=== PATIENT | female | born 1995 | race African-American/Black ===

== ENCOUNTER 2020-12-22 13:52 | Emergency (ER) | payer SELFPAY ==
[~2020-12-22] VITALS: Ht 170.2 cm; Wt 116.6 kg
== END 2020-12-22 16:23 | disposition home or self-care (01) ==
LOC: ED 13:52
DX: J42 Unspecified chronic bronchitis (principal); F17.200 Nicotine dependence, unspecified, uncomplicated; Z20.822 Contact with and (suspected) exposure to COVID-19
CPT/HCPCS: 81001; 84703; 99284; C9803; U0003

== ENCOUNTER 2021-04-10 16:49 | Emergency (ER) | payer OTHER ==
[~2021-04-10] VITALS: Ht 170.2 cm; Wt 116.6 kg
[2021-04-10] MEDS ORDERED: HYDROXYZINE HCL10 MG (17:09)
== END 2021-04-10 23:17 | disposition home or self-care (01) ==
LOC: ED 16:49
DX: S61.511A Laceration without foreign body of right wrist, initial encounter (principal); X78.9XXA Intentional self-harm by unspecified sharp object, initial encounter; Z20.822 Contact with and (suspected) exposure to COVID-19; F31.9 Bipolar disorder, unspecified; J45.909 Unspecified asthma, uncomplicated; F17.200 Nicotine dependence, unspecified, uncomplicated; Z79.899 Other long term (current) drug therapy
CPT/HCPCS: 80053; 80176; 81001; 84443; 84703; 85025; 99285; C9803; U0003

== ENCOUNTER 2022-03-27 05:40 | Day surgery (SDC) | payer OTHER ==
[~2022-03-27] VITALS: Ht 170.2 cm; Wt 113.6 kg
[~2022-03-27 05:40] MED LIST: HYDROXYZINE HCL10 MG; HYDROXYZINE HCL50 MG PO; LEXAPRO20 MG PO; METFORMIN HCL500 MG PO; MONO-LINYAH1 EACH PO; NORTRIPTYLINE H25 MG PO; TRAZODONE HCL150 MG PO
--- NOTE | 2022-03-27 08:28 | NUR ---
03/27/22 0828 Rowan Bradshaw 0819 PATIENT ARRIVES TO PACU UNRESPONSIVE TO PAIN. RESP EVEN AND UNLABORED, MASK AT 6 LITERS. 0825 PATIENT AWAKENS WITH PAINFUL STIMULI. RESP EVEN AND UNLABORED, MASK CONTINUES AT 6 LITERS, BACK TO SLEEP WHEN NOT STIMULATED.
--- NOTE | 2022-03-28 10:13 | OR ---
[facility] [address] [place], [place] [address] Signed DATE OF OPERATION: 03/27/2022 SURGEON: Madelin Rudolph DPM PREOPERATIVE DIAGNOSIS: Painful orthopedic hardware deep on the right first digit. PREOPERATIVE DIAGNOSIS: Painful orthopedic hardware deep on the right first digit. PROCEDURE: Removal of deep hardware right first digit proximal phalanx. WAISTLINE JOINER OVERLOCK: Feliz Mccallum DPM NURSE OPTIONS TRADER: Ivan Rider ANESTHESIA: Local with MAC. Local consisting of a 1:1 mix of 2% lidocaine plain and 0.5% ropivacaine. Total of 10 mL was utilized. HEMOSTASIS: With an ankle tourniquet. ESTIMATED BLOOD LOSS: Less than 5 mL or minimal. MATERIALS UTILIZED: 4-0 Vicryl, 5-0 nylon. PROCEDURE IN DETAIL: The patient was brought into the operating room and placed upon the operating table in the supine position. After IV sedation, the above local anesthesia was administered about the patient's right medial foot. The right foot was then scrubbed, draped, and prepped in the usual sterile technique. An Esmarch was utilized to exsanguinate the patient's right foot and then left wrapped around the ankle to act as tourniquet. Attention was then directed to the dorsal aspect of the first metatarsophalangeal joint where approximately a 3-4 cm linear incision was performed both medial and parallel to Electronically Signed By: MADELIN RUDOLPH DPM 03/28/22 1013 PATIENT NAME: JIMMY HAWLEY OPERATIVE REPORT DATE OF : [birth year] REPORT #: [id number] PHYSICIAN: MADELIN RUDOLPH DPM PCP: KHADAR PENALOZA DO REPORT IS CONFIDENTIAL AND NOT TO BE RELEASED WITHOUT AUTHORIZATION [facility] [address] [place], [place] [address] Signed the pin of the extensor hallucis longus, extending from the first metatarsal head onto the mid proximal phalanx location. The incision was then deepened through the subcutaneous tissue with care being taken to identify and retract vital neurovascular structures. Bleeders were cauterized and ligated as necessary. Dissection continued down to the deep fascia and periosteal layer. Here a surgical staple was identified. Utilizing the Humboldt elevator, the soft tissue around the surgical staple was freed. A wire straightener was then utilized to cut the surgical staple at its midpoint. A needle horta was then utilized to grab each individual leg of the surgical staple, and with slight twisting and distraction, the staple was removed. The area was flushed with copious amounts of sterile normal saline. The area inspected for remnant of metallic particles. The deep soft tissue and subcutaneous tissue were then closed reapproximated utilizing the 4-0 Vicryl and the skin was reapproximated and coapted utilizing 5-0 nylon. The surgical site was dressed with silver foam bordered gauze, followed by rolled gauze and Coban. The ankle tourniquet was removed and prompt hyperemic response was noted to all digits of the patient's right foot. The patient was then escorted to the recovery area by Anesthesia with vital signs stable and again cap refill time being grossly intact. Following a period of postoperative monitoring, the patient was discharged to home with both written and oral instructions. Madelin Rudolph DPM /QUANG /[id number] Copies: ~ Electronically Signed By: MADELIN RUDOLPH DPM 03/28/22 1013 PATIENT NAME: JIMMY HAWLEY OPERATIVE REPORT DATE OF : [birth year] REPORT #: [id number] PHYSICIAN: MADELIN RUDOLPH DPM PCP: KHADAR PENALOZA DO REPORT IS CONFIDENTIAL AND NOT TO BE RELEASED WITHOUT AUTHORIZATION
== END 2022-03-27 09:10 | disposition home or self-care (01) ==
LOC: DS 05:40 → OPS 05:40
PROVIDERS: ATTEND Podiatrist Foot & Ankle Surgery
PROC: 0SPM04Z Removal of Internal Fixation Device from Right Metatarsal-Phalangeal Joint, Open Approach (ICD-10-PCS; principal; 2022-03-27 07:00)
DX: T84.84XA Pain due to internal orthopedic prosthetic devices, implants and grafts, initial encounter (principal); G89.18 Other acute postprocedural pain; E66.9 Obesity, unspecified; J45.909 Unspecified asthma, uncomplicated; E11.9 Type 2 diabetes mellitus without complications; Y83.8 Other surgical procedures as the cause of abnormal reaction of the patient, or of later complication, without mention of misadventure at the time of the procedure
CPT/HCPCS: 73630; J0690; J1100; J2250; J2704; J2795; J7121

== ENCOUNTER 2022-10-31 09:12 | Emergency (ER) | payer OTHER ==
[~2022-10-31] VITALS: Ht 170.2 cm; Wt 101.2 kg
[2022-10-31] MEDS ORDERED: LAMOTRIGINE25 MG PO (09:20)
== END 2022-10-31 14:02 | disposition home or self-care (01) ==
LOC: ED 09:12
DX: R10.32 Left lower quadrant pain (principal); J45.909 Unspecified asthma, uncomplicated; F17.200 Nicotine dependence, unspecified, uncomplicated; Z79.899 Other long term (current) drug therapy; Z20.822 Contact with and (suspected) exposure to COVID-19
CPT/HCPCS: 36415; 74177; 76830; 76856; 80053; 81001; 83690; 84703; 85025; 87502; 96375; 99284-25; J1170; J1885; J2405; J7030; Q9967; U0003